=== PATIENT | female | born 1960 | race African-American/Black ===

== ENCOUNTER 2023-02-21 15:33 | Observation (INO) | payer OTHER, SELFPAY ==
[2023-02-21] VITALS (9 sets, daily range): BP systolic 139–157; BP diastolic 76–99; PULSE 64–72; RESP 13–22; TEMP 36.3–36.6; O2SAT 91–99; BMI 32.3
--- NOTE | ~2023-02-21 | US_ITS ---
EXAMINATION: US abdomen limited DATE: 02/22/2023 10:36 INDICATION: Elevated alkaline phosphatase. TECHNIQUE: Multiple grayscale and Doppler ultrasound images of the abdomen were obtained. COMPARISON: CT abdomen and pelvis 02/21/2023 FINDINGS: The visualized portions of the head and body of the pancreas are normal. The liver is landy l without focal lesion. There is normal flow in main portal vein. The gallbladder is normal in size a nd contains gallstones. No gallbladder wall thickening or sonographic Kohli sign. The common duct is dilated to 12 mm. IMPRESSION: 1. Dilatation of the common duct to 12 mm. 2. Cholelithiasis. Reviewed, dictated and finalized at location A.
--- NOTE | ~2023-02-21 | NM_ITS ---
EXAMINATION: NM shannon stress w perfusion DATE: 02/22/2023 10:05 INDICATION: Chest discomfort. TECHNIQUE: Rest images were obtained following intravenous administration of 11.6 mCi Tc99m tetrofosm in (Myoview). The patient was infused intravenously with Lexiscan (regadenoson). Then, 34.8 mCi Tc99m tetrofosmin (Myoview) was administered intravenously, and stress images were obtained. Data was shemar nstructed into short axis and horizontal and vertical long axis SPECT images. Gated SPECT images were also obtained. COMPARISON: Chest CT 02/21/2023 FINDINGS: There is no definite reversible or fixed perfusion abnormality to suggest ischemia or infar ction. There is no segmental wall motion abnormality. Left ventricular ejection fraction measures > 70%. IMPRESSION: 1. No definite ischemia or infarct. 2. Normal left ventricular ejection fraction measuring >70%. Reviewed, dictated and finalized at location A.
--- NOTE | ~2023-02-21 | CT_ITS ---
EXAMINATION: CT chest abdomen pelvis w con DATE: 02/21/2023 17:44 INDICATION: Chest pain . TECHNIQUE: Computed tomography (CT) of the chest, abdomen, and pelvis was performed with 100 mL Omnip aque-350 intravenous contrast. Automated exposure control and iterative reconstruction technique were employed. The dose-length product was 1159.42 mGy-cm. COMPARISON: None FINDINGS: CHEST: Thoracic aorta: No significant dilation. Mild arch calcification. Lung parenchyma and airways: Biapical paraseptal emphysematous change, worse on the right. Likely chr onic thickening/scar along the left major fissure. Mild bibasilar scar/atelectasis Thoracic inlet, axillae and chest wall: No thyroid or soft tissue mass. No axillary lymphadenopathy. Mediastinum: No mass or lymphadenopathy. Heart and pericardium: Mild cardiomegaly. No pericardial effusion. Coronary artery calcifications: Mild. Pleura: No effusion or mass. Thoracic bones: No acute osseous finding in the chest. ABDOMEN/PELVIS: Liver: Normal. Biliary/Gallbladder: Distended gallbladder without jeff dilation, multiple gallstones. Mild intrahep atic duct dilation. Common bile duct dilation is dilated to 10 mm at the carlito hepatis. 6 mm gallston e within the common duct as it enters the pancreatic head. No bile duct dilation. Pancreas: No mass or duct dilation. Spleen: Normal. Adrenals:No mass. Kidneys: Simple right lower pole cyst. Left lower pole cortical scarring. No suspicious mass, stone, or hydronephrosis. GI tract: Small hiatal hernia. Mild distal esophageal and gastric wall edema. No small or large bowel dilation. Normal appendix. Mesentery/Peritoneum: No ascites, mass, or free air. Retroperitoneum: No mass Atherosclerotic abdominal aortic and/or arterial calcifications. Pelvis: Pelvis partially obscured by metal artifact. Uterus likely surgically absent Soft Tissues: Soft tissues and body wall unremarkable. Abdominopelvic bones: No acute osseous finding in the abdomen/pelvis. Partially visualized, uncompli cated appearing left hip arthroplasty. IMPRESSION: Mild paraseptal emphysematous changes. Esophagitis/gastritis. Choledocholithiasis. Reviewed, dictated and finalized at location K.
--- NOTE | ~2023-02-21 | XR_ITS ---
EXAMINATION: XR chest 2V DATE: 02/21/2023 16:14 INDICATION: Chest pain. TECHNIQUE: Frontal and lateral views of the chest were obtained. COMPARISON: None. FINDINGS: There is mild atelectasis in lingula. No pleural effusion or pneumothorax. Cardiomegaly is noted. There are changes of anterior fusion procedure in cervical spine. IMPRESSION: 1. Mild atelectasis in lingula. 2. Cardiomegaly. Reviewed, dictated and finalized at location A.
--- NOTE | 2023-02-21 15:34 | ECG_ITS ---
Measurements Intervals [place] Rate: 60 P: 61 CA: 178 QRS: 25 QRSD: 85 T: 62 QT: 440 QTc: 441 Interpretive Statements SINUS RHYTHM POSSIBLE LEFT ATRIAL ENLARGEMENT [-0.1mV P WAVE IN V1/V2] NO PREVIOUS ECG AVAILABLE FOR COMPARISON Electronically Signed On 02-22-2023 8:50:50 CDT by Gretchen Madison M.D.
[2023-02-21 15:56] LABS: Basophils Absolute Auto 0.1 K/mm3 (0.0-0.1); Basophils Percent Auto 0.8 % (0.2-1.2); Eosinophils Absolute Auto 0.2 K/mm3 (0-0.3); Eosinophils Percent Auto 2.2 % (0-4.4); Hematocrit 45.2 % (37.0-47.0); Immature Granulocyte Absolute 0.04 K/mm3 (0.00-0.031); Immature Granulocyte Percent A 0.5 % (0-0.5); Lymphocytes Absolute Auto 1.89 K/mm3 (0.9-3.2); Lymphocytes Percent Auto 22.8 % (18.3-44.2); Mean Corpuscular HGB Conc 33.2 g/dl (32-36); Mean Corpuscular Hemoglobin 31.3 pg (26-34); Mean Corpuscular Volume 94.4 fl (80-100); Mean Platelet Volume 10.9 fl (7.4-10.4); Monocytes Absolute Auto 0.9 K/mm3 (0.1-0.6); Monocytes Percent Auto 11.3 % (2.6-8.5); Neutrophils Absolute Auto 5.2 K/mm3 (1.3-6.7); Neutrophils Percent Auto 62.4 % (45.5-73.1); Platelet Count Result 280 k/mm3 (150-375); Red Blood Count 4.79 M/mm3 (4.2-5.4); White Blood Count 8.3 K/mm3 (4.5-10.0)
[2023-02-21 16:04] LABS: Alanine Aminotransferase 281 U/L (6-35); Albumin Level 3.8 g/dL (3.5-5.1); Alkaline Phosphatase 313 U/L (38-126); Anion Gap 2 mmol/L (8-16); Aspartate Amino Transferase 148 U/L (14-36); Bilirubin,Total 1.5 mg/dL (0.2-1.3); Blood Urea Nitrogen 19 mg/dL (7-17); Calcium 8.5 mg/dL (8.4-10.2); Carbon Dioxide 26 mmol/L (22-30); Chloride 106 mmol/L (98-107); Estimated CRCL calculation 66 ml/min; Estimated Glomerular Filt Rate > 60; Glucose 119 mg/dL (65-110); INR 0.9; Lipase 523 U/L (23-300); Potassium 3.6 mmol/L (3.4-5.0); Sodium 134 mmol/L (137-145)
[2023-02-21 16:06] LABS: Partial Thromboplastin Time 27.6 SECONDS (22.3-36.8)
[2023-02-21 16:16] LABS: Troponin I < 0.012 ng/mL (0.000-0.034)
--- NOTE | 2023-02-21 17:41 | ED.CHESTPAIN ---
HPI - Chest Pain General Chief Complaint: Chest Pain Stated Complaint: cp Time Seen by Provider: 02/21/23 16:22 History of Present Illness HPI narrative: This is a 62-year-old female, with past medical history of cervical spine fracture with residual left arm weakness, who presents emergency department complaining of of epigastric abdominal pain and substernal chest pain as well as vomiting for the past 4 days. Patient states she first felt a pressure like substernal chest pain shortly after eating 4 days ago. This was associated with nausea, followed by nonbloody vomiting. Patient states she has had several episodes of this pain, primarily after eating, each associated with nonbloody vomiting. She denies fevers, chills or shortness of breath. Related Data Allergies Allergy/AdvReac Type Severity Reaction Status Date / Time aspirin Allergy Rash Verified 02/21/23 15:35 latex Allergy Rash Verified 02/21/23 15:36 Penicillins Allergy Anaphylaxis Verified 02/21/23 15:36 Sulfa (Sulfonamide Allergy Rash Verified 02/21/23 15:36 Antibiotics) Review of Systems Review of Systems: CONSTITUTIONAL: Denies fever, chills, or sweats. CARDIOVASCULAR: Chest pain denies palpitations, or edema. RESPIRATORY: Denies cough or dyspnea. GASTROINTESTINAL: Nausea and vomiting denies abdominal pain, or diarrhea. GENITOURINARY: Denies dysuria or hematuria. SKIN: Denies rash or itching. MUSCULOSKELETAL: Denies back pain, joint pain, or myalgia. NEUROLOGIC: Denies headache, numbness, dizziness, or weakness. PSYCHIATRIC: Denies anxiety or depression. Exam Narrative: GENERAL: Well-developed, well-nourished, and in no acute distress. HEAD: Normocephalic, atraumatic. EYES: PERRLA and EOMI. ENT: Nares clear, no rhinorrhea or epistaxis. Mucous membranes moist. Oropharynx without tonsillar hypertrophy exudate or other lesions. NECK: Supple. No adenopathy or masses. No JVD CHEST: Clear to auscultation. No respiratory distress. No wheezes rales or rhonchi HEART: Regular rate and rhythm. No murmur heard. Normal peripheral pulses. ABDOMEN: Soft, mild epigastric tenderness to palpation, without rebound or guarding, nondistended, normal active bowel sounds. EXTREMITIES: Normal range of motion. No edema. SKIN: Warm, dry, no rash. NEURO: No focal deficits. Alert and oriented x3. PSYCH: Normal mood and affect. Course Course Emergency Course: 18:40 - EKG not concerning for ischemia. Initial troponin negative. Heart score 5. X-ray not concerning for acute cardiopulmonary abnormality. CT chest abdomen pelvis negative for mass or other acute findings. Chemistries demonstrate AST/ALT elevation of 148/281 respectively. Lipase elevated to 523. 19:30 - Repeat troponin negative. I discussed patient with hospitalist, Dr. King who accepts admission. I discussed the findings and recommendations for observation with the patient, who voiced understanding and is comfortable with the plan. All questions answered to her satisfaction Vital Signs Vital signs: Vital Signs Temperature 97.4 F L 02/21/23 15:38 Pulse Rate 64 02/21/23 15:38 Respiratory Rate 22 H 02/21/23 15:38 Blood Pressure 139/99 H 02/21/23 15:38 Pulse Oximetry 99 02/21/23 15:38 Temperature 97.4 F L 02/21/23 15:38 Pulse Rate 66 02/21/23 18:28 Respiratory Rate 14 02/21/23 18:28 Blood Pressure 157/83 H 02/21/23 18:28 Pulse Oximetry 91 02/21/23 18:28 MDM - Chest Pain MDM Narrative Medical decision making narrative: Plan: Labs, imaging, EKG, troponin, pain control, reassess Differential Diagnosis Differential diagnosis: Likely unstable angina pectoris, chest pain and other (ACS, esophageal impaction, esophageal mass, intrathoracic mass, metabolic abnormality, other) Lab Data 02/21/23 15:44 02/21/23 15:44 Labs: Lab Results 02/21/23 02/21/23 Range/Units 15:44 18:32 WBC 8.3 (4.5-10.0) K/mm3 RBC 4.79 (4.2-5.4
[2023-02-21] MEDS: MORPHINE SULFATE (*CRX) 4 MG/ML INJ IV PUSH (17:51)
[2023-02-21] MEDS: SODIUM CHLORIDE 0.9% IV 1,000 ML 999 ML IV CONT (17:51)
[2023-02-21] MEDS: ONDANSETRON INJ 4 MG/2 ML VIAL IV PUSH (17:51)
[2023-02-21 19:02] LABS: Troponin I < 0.012 ng/mL (0.000-0.034)
--- NOTE | 2023-02-21 19:25 | PM.IMHP ---
H&P: HPI History of Present Illness Date/Time: 02/21/23 19:25 Chief Complaint: Atypical chest pain. Narrative: This is a 62-year-old female with past medical history significant for tobacco dependence, COPD/ emphysema, hypertension. patient presents to the emergency room after having nausea vomiting 1 day duration with retrosternal chest pain, patient arrived via EMS rates her pain at 10/10 in intensity. patient has a chronic cough, no change in sputum quality, no fevers, no rigors, no chills, patient has some pedal swelling which is usual for her. patient has had a right upper quadrant pain as well as nausea and vomiting.In emergency room patient was found to have atrial fibrillation with rapid ventricular response placed on Cardizem drip. EXAMINATION: XR chest 2V DATE: 02/21/2023 16:14 INDICATION: Chest pain. TECHNIQUE: Frontal and lateral views of the chest were obtained. COMPARISON: None. FINDINGS: There is mild atelectasis in lingula. No pleural effusion or pneumothorax. Cardiomegaly is noted. There are changes of anterior fusion procedure in cervical spine. IMPRESSION: 1. Mild atelectasis in lingula. 2. Cardiomegaly. EXAMINATION: CT chest abdomen pelvis w con DATE: 02/21/2023 17:44 INDICATION: Chest pain . TECHNIQUE: Computed tomography (CT) of the chest, abdomen, and pelvis was performed with 100 mL Omnipaque-350 intravenous contrast. Automated exposure control and iterative reconstruction technique were employed. The dose-length product was 1159.42 mGy-cm. COMPARISON: None FINDINGS: CHEST: Thoracic aorta: No significant dilation. Mild arch calcification. Lung parenchyma and airways: Biapical paraseptal emphysematous change, worse on the right. Likely chronic thickening/scar along the left major fissure. Mild bibasilar scar/atelectasis Thoracic inlet, axillae and chest wall: No thyroid or soft tissue mass. No axillary lymphadenopathy. Mediastinum: No mass or lymphadenopathy. Heart and pericardium: Mild cardiomegaly. No pericardial effusion. Coronary artery calcifications: Mild. Pleura: No effusion or mass. Thoracic bones: No acute osseous finding in the chest. ABDOMEN/PELVIS: Liver: Normal.? Biliary/Gallbladder: Distended gallbladder without jeff dilation, multiple gallstones. Mild intrahepatic duct dilation. Common bile duct dilation is dilated to 10 mm at the carlito hepatis. 6 mm gallstone within the common duct as it enters the pancreatic head. No bile duct dilation. Pancreas: No mass or duct dilation. Spleen: Normal. Adrenals:No mass. Kidneys: Simple right lower pole cyst. Left lower pole cortical scarring. No suspicious mass, stone, or hydronephrosis. GI tract: Small hiatal hernia. Mild distal esophageal and gastric wall edema. No small or large bowel dilation. Normal appendix. Mesentery/Peritoneum: No ascites, mass, or free air. Retroperitoneum: No mass Atherosclerotic abdominal aortic and/or arterial calcifications. Pelvis: Pelvis partially obscured by metal artifact. Uterus likely surgically absent Soft Tissues: Soft tissues and body wall unremarkable. Abdominopelvic bones:? No acute osseous finding in the abdomen/pelvis. Partially visualized, uncomplicated appearing left hip arthroplasty. IMPRESSION: Mild paraseptal emphysematous changes. Esophagitis/gastritis. Choledocholithiasis. Review of Systems Review of Systems: Retrosternal chest pain Constitutional: Constitutional: Denies body ache(s), Denies chills, Denies fatigue, Denies fever(s), Denies malaise, Denies night sweats and Denies weakness Eyes: Eyes: Denies change in vision ENT: Denies dysphagia, Denies vertigo, Denies dizziness and Denies odynophagia Cardiovascular: Cardiovascular: Reports chest pain, Reports chest pain at rest, Reports irregular heart rhythm, Denies lightheadedness, Denies radiating jaw, neck or arm pain, Denies palpitations and Denies dyspnea Respiratory: Respiratory: Denies change in phlegm color,
--- NOTE | 2023-02-21 21:52 | ADMGEN ---
This patient, Bethany Fletcher, was admitted to IMU Room 203-01. Patient/family oriented to hospital policies and general routines including ID bracelet, bed and alarms, visiting hours, pain management, procedures, bathroom and other care routines, personal items, smoking policy, room service/diet, and visiting hours. Information on how to activate the Rapid Response Team has been discussed. Patient/Family are encouraged to report perceived risks to care and to ask questions if they do not understand what they are told or what they should do.
[2023-02-21 22:34] LABS: Troponin I < 0.012 ng/mL (0.000-0.034)
[2023-02-22] VITALS (9 sets, daily range): BP systolic 109–165; BP diastolic 70–85; PULSE 55–74; RESP 20–22; TEMP 36–36.3; O2SAT 91–99
--- NOTE | 2023-02-22 01:02 | EST_ITS ---
Patient Info Name: Bethany Fletcher Age: 62 years : 1960 Gender: Female Ht: 65 in Wt: 194 lbs BSA: 2.04 m2 HR: 50 bpm BP: 154 / 83 mmHg Heart Rhythm: Sinus Rhythm Exam Date: 02/22/2023 8:58 AM Exam Location: [facility] Stress Patient Status: Outpatient Admit Date: 02/21/2023 Staff Ordering Physician: Abhay King MD Attending Provider: Abhay King MD Exercise Technologist: Lea Ramirez CT Exercise Physician: Mateus Finch DO Exam Type: CA stress shannon w NM Study Info Indications R07.89 - Other chest pain A regadenoson stress test was performed. Summary 1. 1. Negative lexiscan stress test for ischemic ST changes by ECG criteria. 2. 2. Baseline hypertension. 3. 3. Nuclear scan to follow and will be reported separately. Please correlate with it. 4. 4. Patient informed of the above results. Protocol: Lexiscan Stress ECG Details Stage: REST Duration (min): 6 min : 50 sec HR (bpm): 70 SBP (mmHg): 154 DBP (mmHg): 83 Stage: STAGE 1 Duration (min): 1 min : 0 sec HR (bpm): 76 SBP (mmHg): 154 DBP (mmHg): 83 Stage: RECOVERY Duration (min): 1 min : 0 sec HR (bpm): 84 SBP (mmHg): 152 DBP (mmHg): 75 Stage: RECOVERY Duration (min): 2 min : 0 sec HR (bpm): 91 SBP (mmHg): 152 DBP (mmHg): 75 Stage: RECOVERY Duration (min): 3 min : 0 sec HR (bpm): 79 SBP (mmHg): 163 DBP (mmHg): 78 Stage: RECOVERY Duration (min): 3 min : 6 sec HR (bpm): 79 SBP (mmHg): 163 DBP (mmHg): 78 Rest HR: 70 bpm Peak HR: 91 bpm Rest Sys BP: 154 mmHg Peak Sys BP: 163 mmHg Max Pred HR: 159 bpm % Max Pred HR: 57 % Target HR: 135 bpm Max RPP: 14,833 bpm*mmHg Termination Reason: Completed protocol Cardiac Symptoms: Shortness of breath Total Time: 1 min : 0 sec Rest Qiu BP: 83 mmHg Peak Qiu BP: 78 mmHg Total Dose: 0.4 mg Resting ECG Sinus rhythm. Stress ECG No ST changes. Arrhythmias None. Report Signatures
[2023-02-22 04:46] LABS: Basophils Absolute Auto 0.1 K/mm3 (0.0-0.1); Basophils Percent Auto 0.6 % (0.2-1.2); Eosinophils Absolute Auto 0.2 K/mm3 (0-0.3); Eosinophils Percent Auto 2.4 % (0-4.4); Hematocrit 43.7 % (37.0-47.0); Hemoglobin 14.1 g/dL (12.0-15.0); Immature Granulocyte Absolute 0.03 K/mm3 (0.00-0.031); Immature Granulocyte Percent A 0.4 % (0-0.5); Lymphocytes Absolute Auto 2.47 K/mm3 (0.9-3.2); Lymphocytes Percent Auto 31.7 % (18.3-44.2); Mean Corpuscular HGB Conc 32.3 g/dl (32-36); Mean Corpuscular Hemoglobin 31.1 pg (26-34); Mean Corpuscular Volume 96.5 fl (80-100); Mean Platelet Volume 10.6 fl (7.4-10.4); Monocytes Absolute Auto 0.8 K/mm3 (0.1-0.6); Monocytes Percent Auto 10.4 % (2.6-8.5); Neutrophils Absolute Auto 4.2 K/mm3 (1.3-6.7); Neutrophils Percent Auto 54.5 % (45.5-73.1); Platelet Count Result 250 k/mm3 (150-375); Red Blood Count 4.53 M/mm3 (4.2-5.4); Red Cell Distribution Width 14.9 % (11.5-14.5); White Blood Count 7.8 K/mm3 (4.5-10.0)
[2023-02-22 05:00] LABS: Anion Gap 1 mmol/L (8-16); Blood Urea Nitrogen 14 mg/dL (7-17); Calcium 7.9 mg/dL (8.4-10.2); Carbon Dioxide 26 mmol/L (22-30); Chloride 107 mmol/L (98-107); Estimated CRCL calculation 70 ml/min; Estimated Glomerular Filt Rate > 60; Glucose 91 mg/dL (65-110); Potassium 3.4 mmol/L (3.4-5.0); Sodium 134 mmol/L (137-145)
[2023-02-22] MEDS: NIFEdipine 30 MG TAB.ER.24 90 MG PO (07:57)
[2023-02-22] MEDS: lisinopriL 20 MG TABLET 40 MG PO (07:57)
[2023-02-22] MEDS: SUCRALFATE SUSP 100 MG/ML 10 ML UDC 1000 MG PO (07:57)
[2023-02-22] MEDS: PANTOPRAZOLE SODIUM IV 40 MG VIAL IV PUSH (07:58)
--- NOTE | 2023-02-22 08:54 | PM.IMPN ---
Progress Note: A&P Assessment and Plan (1) Chest pain: Qualifiers: Chest pain type: unspecified Qualified Code(s): R07.9 - Chest pain, unspecified Code(s): R07.9 - Chest pain, unspecified Status: Acute Assessment and Plan: Stress test ordered and pending Troponin negative x3 (2) Nausea & vomiting: Qualifiers: Vomiting type: unspecified Qualified Code(s): R11.2 - Nausea with vomiting, unspecified Code(s): R11.2 - Nausea with vomiting, unspecified Status: Acute Assessment and Plan: Supportive care, check right upper quadrant ultrasound and hepatitis panel Hepatitis panel negative, RUQ US negative for acute giselle, dilated CBD noted, no stone in duct, suspect the stone passed as patient's symptoms have completely resolved (3) HTN (hypertension): Code(s): I10 - Essential (primary) hypertension Status: Acute Assessment and Plan: Blood pressures reviewed 02/22 (4) Tobacco dependence: Code(s): F17.200 - Nicotine dependence, unspecified, uncomplicated Status: Acute Assessment and Plan: Smoking cessation recommended (5) COPD (chronic obstructive pulmonary disease): Code(s): J44.9 - Chronic obstructive pulmonary disease, unspecified Status: Acute Assessment and Plan: Does not appear to be in exacerbation (6) Abnormal LFTs: Code(s): R79.89 - Other specified abnormal findings of blood chemistry Status: Acute Assessment and Plan: Monitor LFTs, right upper quadrant ultrasound ordered and pending see above Plan DVT prophylaxis with SCDs GI prophylaxis not indicated Code status full code Subjective Date/time seen: 02/22/23 08:54 Interval history: 62-year-old female with history of cervical spine fracture and residual left arm weakness is presenting with chest pain, abdominal pain and vomiting. No overnight events noted. No chest pain or shortness of breath. No nausea, vomiting or diarrhea. No fevers or chills. Eager to go home. Review of Systems Review of Systems: 12 point review of systems was assessed and was negative except as noted in the HPI Exam Narrative: General: No acute distress, alert and oriented per baseline HEENT: Atraumatic, normocephalic, mucous membranes moist CV: Regular rate and rhythm, S1, S2 Lungs: Clear to auscultation bilaterally, no rales or crackles noted, no wheezes, good air entry Abdomen: Soft, nontender, nondistended Extremities: Normal to inspection Skin: No rashes noted, no lesions or wounds seen Psych: Euthymic, normal affect Objective Data Vital Signs Vital Signs: Vital Signs - 24 hr 02/21/23 15:38 02/21/23 17:44 02/21/23 17:45 Temperature 97.4 F L Pulse Rate 64 72 71 Respiratory Rate 22 H 17 17 Blood Pressure 139/99 H 157/83 H Pulse Oximetry 99 99 97 Oxygen Delivery 02/21/23 18:04 02/21/23 18:16 02/21/23 18:28 Temperature Pulse Rate 67 64 66 Respiratory Rate 15 13 14 Blood Pressure 157/83 H Pulse Oximetry 95 95 91 Oxygen Delivery 02/21/23 19:28 02/21/23 22:05 02/21/23 22:00 Temperature 97.8 F Pulse Rate 67 69 68 Respiratory Rate 18 20 Blood Pressure 156/76 H 151/92 H Pulse Oximetry 94 99 Oxygen Delivery 02/21/23 22:00 02/21/23 22:00 02/22/23 00:00 Temperature Pulse Rate 68 68 74 Respiratory Rate 20 Blood Pressure Pulse Oximetry 99 Oxygen Delivery Room Air 02/22/23 00:00 02/22/23 00:00 02/22/23 04:00 Temperature 97.4 F L Pulse Rate 74 74 70 Respiratory Rate 20 20 Blood Pressure 109/85 Pulse Oximetry 99 93 Oxygen Delivery Room Air 02/22/23 02:00 02/22/23 04:00 02/22/23 04:00 Temperature Pulse Rate 74 67 67 Respiratory Rate 20 Blood Pressure Pulse Oximetry 93 Oxygen Delivery Room Air 02/22/23 06:00 02/22/23 08:04 Temperature 96.8 F L Pulse Rate 70 61 Respiratory Rate 22 H Blood Press
[2023-02-22 09:44] LABS: Hepatitis B Surface Antigen Negative (Negative)
[2023-02-22 09:49] LABS: HAV RESULT Negative (Negative); Hepatitis B Core IgM Result Negative (Negative)
[2023-02-22 10:01] LABS: Hepatitis C Virus Antibody Negative (Negative)
--- NOTE | 2023-02-22 13:48 | PM.DS ---
DS: Admitting Diagnosis Discharge Date 02/22/23 Admitting Diagnosis chest and epigastric pain DS: Discharge Diagnosis Discharge Diagnosis (1) Chest pain: Qualifiers: Chest pain type: unspecified Qualified Code(s): R07.9 - Chest pain, unspecified Code(s): R07.9 - Chest pain, unspecified Status: Acute Assessment and Plan: Stress test ordered and pending Troponin negative x3 (2) Nausea & vomiting: Qualifiers: Vomiting type: unspecified Qualified Code(s): R11.2 - Nausea with vomiting, unspecified Code(s): R11.2 - Nausea with vomiting, unspecified Status: Acute Assessment and Plan: Supportive care, check right upper quadrant ultrasound and hepatitis panel Hepatitis panel negative, RUQ US negative for acute giselle, dilated CBD noted, no stone in duct, suspect the stone passed as patient's symptoms have completely resolved (3) HTN (hypertension): Code(s): I10 - Essential (primary) hypertension Status: Acute Assessment and Plan: Blood pressures reviewed 02/22 (4) Tobacco dependence: Code(s): F17.200 - Nicotine dependence, unspecified, uncomplicated Status: Acute Assessment and Plan: Smoking cessation recommended (5) COPD (chronic obstructive pulmonary disease): Code(s): J44.9 - Chronic obstructive pulmonary disease, unspecified Status: Acute Assessment and Plan: Does not appear to be in exacerbation (6) Abnormal LFTs: Code(s): R79.89 - Other specified abnormal findings of blood chemistry Status: Acute Assessment and Plan: Monitor LFTs, right upper quadrant ultrasound ordered and pending see above Plan DVT prophylaxis with SCDs GI prophylaxis not indicated Code status full code DS: Summary Hospital Course Hospital Course: 62-year-old female with history of cervical spine fracture and residual left arm weakness is presenting with chest pain, abdominal pain and vomiting. Choledocholithiasis seen on CT scan. All symptoms resolved. Right upper quadrant ultrasound performed, common bile duct was dilated but no stone noted. Suspect stone has been passed. Patient is requesting to go home and have outpatient workup for possible cholecystectomy as an elective basis. Stress test was negative for ischemia. Hepatitis panel negative. Please see above and med rec for details. Patient was discharged in stable condition with close outpatient follow-up. Time Spent with Patient Time attestation: Total time spent providing and/or coordinating discharge services: Exam Narrative: General: No acute distress, alert and oriented per baseline HEENT: Atraumatic, normocephalic, mucous membranes moist CV: Regular rate and rhythm, S1, S2 Lungs: Clear to auscultation bilaterally, no rales or crackles noted, no wheezes, good air entry Abdomen: Soft, nontender, nondistended Extremities: Normal to inspection Skin: No rashes noted, no lesions or wounds seen Psych: Euthymic, normal affect DS: Data Data Completed and Pending Labs on day of discharge: Labs from last 24 hours 02/22/23 02/21/23 02/21/23 04:32 22:02 18:32 WBC 7.8 RBC 4.53 Hgb 14.1 Hct 43.7 MCV 96.5 MCH 31.1 MCHC 32.3 RDW 14.9 H Plt Count 250 MPV 10.6 H Immature Gran % (Auto) 0.4 Neut % (Auto) 54.5 Lymph % (Auto) 31.7 [place] % (Auto) 10.4 H Eos % (Auto) 2.4 Baso % (Auto) 0.6 Lymph # (Auto) 2.47 [place] # (Auto) 0.8 H Eos # (Auto) 0.2 Baso # (Auto) 0.1 Abs Immat Gran (auto) 0.03 Absolute Neuts (auto) 4.2 Absolute Nucleated RBC 0.0 Nucleated RBC % 0.0 PT INR APTT Sodium 134 L Potassium 3.4 Chloride 107 Carbon Dioxide 26 Anion Gap 1 L BUN 14 D Creatinine 0.80 Estim Creat Clear Calc 70 Estimated GFR > 60 Glucose 91 Calcium 7.9 L Total Bilirubin AST ALT
== END 2023-02-22 14:44 | disposition home or self-care (01) ==
LOC: ANHED 19:47 → ANHIMU 21:32
PROVIDERS: Admitting Provider Internal Medicine; Emergency Provider Preventive Medicine Aerospace Medicine; Visit Provider Student in an Organized Health Care Education/Training Program
DX: R07.9 Chest pain, unspecified (principal); R11.2 Nausea with vomiting, unspecified; R79.89 Other specified abnormal findings of blood chemistry; J43.9 Emphysema, unspecified; I10 Essential (primary) hypertension; Z72.0 Tobacco use; Z79.51 Long term (current) use of inhaled steroids
CPT/HCPCS: 36415; 71046; 71260; 74177; 76705; 78452; 80048; 80053; 80074; 83690; 84484; 85025; 85610; 85730; 93005; 93017; 96361; 96374; 96375; 99285; A9270; A9502; C9113; G0378; J2270; J2405; J2785; J7030; Q9967